=== PATIENT | male | born 1935 | race Caucasian/White ===

== ENCOUNTER 2016-04-23 08:59 | Emergency (ER) ==
[2016-04-23 09:08] VITALS: BP 139/72
--- NOTE | 2016-04-23 09:40 | PROVIDER DOCUMENTATION ---
HPI-General Adult - General Chief Complaint: General Adult Stated Complaint: BLOOD IN URINE Time Seen by Provider: 04/23/16 09:30 Source: patient, family Allergies/Adverse Reactions: Patient Allergies Allergy/AdvReac Type Severity Reaction Status Date / Time morphine Allergy NAUSEA/VOMI Verified 03/20/16 13:26 TING Home Medications: Ipratropium/Albuterol INH [Combivent Respimat Inhaler] 1 puff INH PRN PRN Apixaban [Eliquis] 5 mg PO BID 02/17/16 - History of Present Illness -Gen Adult Nature of Presenting Problems: patient is a 80 y/o M that presents with 2 to 3 days of hematuria. patient has a fall a few days ago, history of multiple falls over the past month. denies fever/chills, n/v/d. has had LLQ pain with the hematuria. Location of Pain/Injury: reports: abdomen (LLQ), back Pain Radiation: reports: no radiation Quality of Pain: reports: aching Severity: reports: moderate Onset/Duration: reports: abrupt, 2 days ago, 3 days ago Timing: reports: still present, constant Context/Activities at Onset: reports: recent trauma history Modifying Factors: worse with: movement, palpation Associated Symptoms: reports: back/neck pain, genitourinary problems. denies: chest pain, diaphoresis, diarrhea, fever/chills, nausea, vomiting Similar Symptoms Previously?: No Recently seen or treated by another doctor?: Yes Review of Systems - Adult - REVIEW OF SYSTEMS - ADULT Constitutional: denies: chills, fever Eyes: reports: no symptoms reported Ears, Nose, Mouth & Throat: reports: no symptoms reported Cardiovascular: denies: chest pain, palpitations, syncope Respiratory: denies: cough, shortness of breath, wheezing Gastrointestinal: reports: abdominal pain. denies: hematemesis, diarrhea, nausea, rectal bleeding, vomiting Genitourinary: reports: hematuria. denies: dysuria, frequency Musculoskeletal: reports: back pain. denies: joint pain, neck pain Integumentary: reports: no symptoms reported Neurological: reports: no symptoms reported Psychiatric: reports: no symptoms reported Endocrine: reports: no symptoms reported Hematologic/Lymphatic: reports: no symptoms reported Allergic/Immunologic: reports: no symptoms reported All Other Systems: Reviewed and Negative Past History - Adult - PAST MEDICAL HISTORY-ADULT Review of Records: reports: Old Records Reviewed, Nursing Assessment Review, Medications Reviewed Cardiovascular: reports: A-Fib, HTN, other (pericarditis) Respiratory: reports: COPD Musculoskeletal: reports: arthritis, orthopedic injury (t5 compression fx) - PRIOR SURGERIES/PROCEDURES Surgical/Procedure History: reports: back/neck, other (cartoid endarctomy) - IMMUNIZATION STATUS Childhood Immunizations: See Nurse Assessment Flu Vaccine: See Nurse Assessment - FAMILY HISTORY Family History: reviewed, not pertinent - SOCIAL HISTORY Smoking: cigarettes, less than 1 pack/day Living Situation: family Physical Exam-General - PHYSICAL EXAM-ADULT Initial Vital Signs Reviewed: Yes - CONSTITUTIONAL General Appearance: alert, no apparent distress - EYES Eyes: PERRL/EOMI, pink conjunctivae - HEAD, EARS, NOSE, MOUTH & THROAT HENMT: normocephalic/atraumatic, moist mucous membranes, normal ENT inspection - NECK Neck: full range of motion, normal inspection. negative: lymphadenopathy - RESPIRATORY Respiratory: lungs clear, normal breath sounds, no respiratory distress, no accessory muscle use, other (left lower rib pain and tenderness with palpation) - CARDIOVASCULAR Cardiovascular: regular rate, rhythm, no edema, no murmur - GASTROINTESTINAL (ABDOMEN) Abdominal Exam: normal bowel sounds, soft, no organomegaly, no pulsatile mass, tenderness (LLQ). negative: hernia, mass - MUSCULOSKELETAL Back Exam: no CVA tenderness, vertebral tenderness (t5). negative: CVA tenderness Extremity: normal range of motion, no pedal edema, no calf tenderness, normal capillary refill, pelvis stable - SKIN Integumentary: normal color, normal turgor, warm/dry - NEUROLOGIC Neurologic: grossly normal, no motor/sensory deficits - PSYCHIATRIC Psych/Mental Status: normal mood/affect, normal thought content, normal thought process, oriented x 3 Progress - PLAN OF CARE/RESULTS Progress/Plan/Lab Results: plan of care-labs, Vital Signs Temp Pulse Resp BP Pulse Ox 04/23/16 09:04 98.0 F 52 L 28 H 139/72 94 L morphine Allergy (Verified 03/20/16 13:26) NAUSEA/VOMITING Diltiazem C.d. [Cardizem Cd] 120 mg PO DAILY #30 capsule 10/07/15 Ipratropium/Albuterol INH [Combivent Respimat Inhaler] 1 puff INH PRN PRN Aspirin 81 mg PO DAILY #100 chewtab 10/21/15 Apixaban [Eliquis] 5 mg PO BID 02/17/16 Oxycodone HCl/Acetaminophen [Percocet 2.5-325 mg Tablet] 1 each PO Q4-6H PRN PRN #20 tablet 03/20/16 I&O 04/22/16 04/23/16 04/24/16 06:59 06:59 06:59 Output Total 30 Balance -30 Laboratory 04/23/16 04/23/16 04/23/16 09:57 09:57 09:40 WBC 5.71 RBC 4.24 L Hgb 12.8 L Hct 38.0 L MCV 89.6 MCH 30.2 MCHC 33.7 RDW Std Deviation 14.5 Plt Count 250 MPV 10.9 H Immature Gran % (Auto) 0.0 Neut % (Auto) 71.6 Lymph % (Auto) 17.0 L Stephenson % (Auto) 9.8 H Eos % (Auto) 1.1 Baso % (Auto) 0.5 Immature Gran # (Auto) 0.00 Neut # (Auto) 4.09 Lymph # (Auto) 0.97 L Stephenson # (Auto) 0.56 Eos # (Auto) 0.06 Baso # (Auto) 0.03 Sodium 137 Potassium 4.0 Chloride 98 Carbon Dioxide 25 Anion Gap 14 BUN 16 Creatinine 0.7 Estimated GFR/1.73 m2 > 60 BUN/Creatinine Ratio 23 Glucose 112 H Calculated Osmolality 276 Calcium 9.4 Total Bilirubin 0.41 AST 11 ALT 6 L Alkaline Phosphatase 124 H Total Protein 7.0 Albumin 3.5 Globulin 3.5 Albumin/Globulin Ratio 1.0 Urine Source CLEAN CATCH Urine Color ORANGE Urine Turbidity HAZY Urine pH 5.5 Ur Specific Mcintosh 1.035 Urine Protein 100 A Ur Glucose (Stick) NEGATIVE Ur Ketones (Stick) 10 A Urine Blood LARGE A Urine Nitrite NEGATIVE Urine Bilirubin SMALL A Urobilinogen Dipstick 3 A Urine Leukocytes MODERATE A Urine WBC (Auto) 10-20 A Urine RBC (Auto) TNTC A U Epithel Cells (Auto) <10 Urine Bacteria (Auto) NEGATIVE Urine Crystals NONE SEEN Small Round Cells NONE SEEN Urine Casts NONE SEEN Urine Yeast-like Cells NONE SEEN Orders Category Date Time Status RIBS UNILAT W/PA CHEST LEFT [RAD] Stat Exams 04/23/16 09:43 Taken CBC WITH ELECTRONIC DIFF [HEME] Stat Lab 04/23/16 09:57 Completed CMP [COMPREHENSIVE METABOLIC PANEL] [CHEM] Stat Lab 04/23/16 09:57 Completed URINALYSIS W/POSS RFLX CULT [URINALYSIS] Stat Lab 04/23/16 09:40 Completed URINE CULTURE [RM] Routine Lab 04/23/16 10:24 Received URINE MANUAL MICROSCOPIC [URINALYSIS] Stat Lab 04/23/16 09:40 Completed pt will be d/c home with rx, f/u with pcp, pt and family understood results/ instructions, pt was clinically stable - XRAY 1 XRAY: Left XRAY Study: Ribs Impression: Abnormal XRAY Interpretation: fx 9th and 10th rib Departure - Departure Time of Disposition Order: 10:53 DIAGNOSIS: Ribs, multiple fractures Qualifiers: Encounter type: initial encounter Fracture type: closed Laterality: left Qualified Code(s): S22.42XA - Multiple fractures of ribs, left side, initial encounter for closed fracture UTI (urinary tract infection) Qualifiers: Urinary tract infection type: acute cystitis Hematuria presence: with hematuria Qualified Code(s): N30.01 - Acute cystitis with hematuria Disposition: HOME 01 Certified Medical Emergency: Emergent Condition: Stable Additional Instructions: push fluids ED Follow Up Instructions: You have been treated by a care provider in the Emergency Department. These instructions are being provided to you so you can have an understanding of how to care for yourself upon discharge. Upon discharge from the Emergency Department, you are responsible for making arrangements for follow-up care by a physician of your choice. Take all prescribed medications as directed. Return to the Emergency Department immediately for any new or worsening symptoms. You may call the Physician Referral phone number at [phone] to obtain a list of Physicians who are taking new patients. Referrals: Heriberto Wakefield [Primary Care Provider] - Call for Appoint. 1-2days Instructions: Rib Fracture, [id number], Urinary Tract Infection, [id number] Attestation - Scribe Verification/Attestation Scribe:: Kyle Garcia Acting as Scribe for:: Beth Da Silva Scribe documention review:: This chart was documented by a scribe and accurately reflects the service the provider performed and the decisions made by the provider. Physician Attestation - Physician Attestation I, the provider, attest to the following statement:: Beth Da Silva Physician documentation Attestation:: This documentation recorded by the scribe accurately reflects the service I personally performed and the decisions made by me.
[2016-04-23 10:01] LABS: MANUAL DIFF NEEDED? NO
[2016-04-23 10:02] LABS: URINE SOURCE CLEAN CATCH
[2016-04-23 10:07] LABS: BASO% 0.5 % (0.0-0.8); EOS# 0.06 X1000 (0.0-0.7); EOS% 1.1 % (0.0-10.0); HEMOGLOBIN 12.8 g/dL (14.0-18.0); LYMPH# 0.97 X1000 (1.2-3.4); MCH 30.2 PG (27-31); MCHC 33.7 g/dL (33-37); MCV 89.6 FL (81-99); MONO# 0.56 X1000 (0.11-0.59); MONO% 9.8 % (1.7-9.3); MPV 10.9 FL (7.4-10.4); NEUT% 71.6 % (42.2-75.2); PLT 250 X1000 (130-400); RBC 4.24 XMIL (4.7-6.1)
[2016-04-23 10:10] LABS: URINE MICRO REVIEW NEEDED? YES
[2016-04-23 10:24] LABS: BILIRUBIN URINE SMALL (NEGATIVE); BLOOD URINE LARGE (NEGATIVE); COLOR ORANGE; GLUCOSE URINE NEGATIVE (NEGATIVE); LEUKOCYTES URINE MODERATE (NEGATIVE); NITRITE URINE NEGATIVE (NEGATIVE); PH URINE 5.5; PROTEIN URINE 100 mg/dL (NEGATIVE); SP GRAVITY URINE 1.035; TURBIDITY URINE HAZY (CLEAR); UR EPITHELIAL CELLS <10 /HPF (<10); URINE BACTERIA NEGATIVE /HPF; URINE CULTURE NEEDED? YES; URINE RBC TNTC /HPF (<10); UROBILINOGEN URINE 3 mg/dL (NORMAL)
[2016-04-23 10:47] LABS: URINE CASTS NONE SEEN; URINE CRYSTALS NONE SEEN; URINE SMALL ROUND CELLS NONE SEEN
[2016-04-23 10:48] LABS: AGAP 14; ALBUMIN 3.5 g/dL (3.5-5.0); ALKALINE PHOSPHATASE 124 U/L (32-122); BUN 16 mg/dL (8-22); CALCIUM 9.4 mg/dL (8.8-10.2); CHLORIDE 98 mmol/L (98-107); COSMO 276; GOT 11 U/L (10-34); GPT 6 U/L (10-44); SODIUM 137 mmol/L (136-145); TCO2 25 mmol/L (25-35); TOTAL BILIRUBIN 0.41 mg/dL (0.20-1.00)
[2016-04-23] MEDS ORDERED: GENTAMICIN IM ONE (10:58)
--- NOTE | 2016-04-23 11:02 | Diag Imaging Result Document ---
PROCEDURE NAME: RIBS UNILAT W/PA CHEST LEFT - 04/23/2016 AP CHEST AND LEFT RIB SERIES, FIVE VIEWS: FINDINGS: There is no evidence of a pneumothorax or pleural fluid collection. There is some fibrosis in the lingula. There is a fracture of the distal tenth rib. There may be a nondisplaced fracture of the ninth rib distally. IMPRESSION: Fractures of the ninth and tenth left ribs.
== END 2016-04-23 11:39 | disposition home or self-care (01) ==
LOC: ED 08:59
DX: S22.42XA Multiple fractures of ribs, left side, initial encounter for closed fracture (principal); N30.01 Acute cystitis with hematuria; R31.9 Hematuria, unspecified; R10.32 Left lower quadrant pain; M54.9 Dorsalgia, unspecified; R07.81 Pleurodynia; R10.814 Left lower quadrant abdominal tenderness; I48.91 Unspecified atrial fibrillation; Z79.899 Other long term (current) drug therapy; I10 Essential (primary) hypertension; J44.9 Chronic obstructive pulmonary disease, unspecified; M19.90 Unspecified osteoarthritis, unspecified site; F17.210 Nicotine dependence, cigarettes, uncomplicated; Z79.01 Long term (current) use of anticoagulants; W19.XXXA Unspecified fall, initial encounter
CPT/HCPCS: 36415; 51798; 71101; 80053; 81001; 85025; 87077; 87088; 96372; J1580

== ENCOUNTER 2016-09-16 18:19 | Inpatient (IN) ==
[2016-09-16] MEDS ORDERED: ASPIRIN PO STA (18:25)
[2016-09-16 18:52] LABS: BASO% 0.1 % (0.0-0.8); HEMATOCRIT 38.2 % (42.0-52.0); HEMOGLOBIN 13.1 g/dL (14.0-18.0); IMM GRAN# 0.04 X1000 (0.0-0.04); IMM GRAN% 0.3 % (0.0-0.5); LYMPH# 0.56 X1000 (1.2-3.4); LYMPH% 4.9 % (20.5-51.1); MANUAL DIFF NEEDED? NO; MCH 30.2 PG (27-31); MCHC 34.3 g/dL (33-37); MONO# 0.14 X1000 (0.11-0.59); MONO% 1.2 % (1.7-9.3); MPV 9.6 FL (7.4-10.4); NEUT% 93.5 % (42.2-75.2); PLT 374 X1000 (130-400); RBC 4.34 XMIL (4.7-6.1)
[2016-09-16 18:56] LABS: PROTIME 10.5 Seconds (9.2-11.7); PTT 28.5 Seconds (22.0-36.0)
[2016-09-16 19:24] LABS: AGAP 16; ALBUMIN 3.4 g/dL (3.5-5.0); ALKALINE PHOSPHATASE 67 U/L (32-122); BUN 16 mg/dL (8-22); CALCIUM 9.2 mg/dL (8.8-10.2); CHLORIDE 96 mmol/L (98-107); CK PROFILE 22 U/L (24-204); COSMO 279; GOT 8 U/L (10-34); GPT 10 U/L (10-44); POTASSIUM 4.5 mmol/L (3.5-5.1); SODIUM 135 mmol/L (136-145); TCO2 23 mmol/L (25-35); TOTAL BILIRUBIN 0.15 mg/dL (0.20-1.00); TOTAL PROTEIN 7.1 g/dL (6.3-8.3)
[2016-09-16] MEDS ORDERED: NORCO-7.5 PO ONE (19:56)
[2016-09-16] MEDS ORDERED: LASIX IV ONE (21:17)
[2016-09-16] MEDS ORDERED: ROCEPHIN 1 GM/NS 1 GM/50 ML IVPB IV ONE (21:50)
--- NOTE | 2016-09-16 23:57 | HISTORY AND PHYSICAL ---
CHIEF COMPLAINT: Chest pain. HISTORY OF PRESENT ILLNESS: This is a pleasant gentleman who came in for atypical chest pain the last 24 hours. He reports having a carotid endarterectomy, I believe per Dr. Taylor, within the last month. I do not have any record of visits for that. His last visit here was in April. This may have been done as an outpatient, I guess, but in any case, the patient came in for chest pain across his entire chest, also radiating to his back. He is already on apixaban, which I believe is for atrial fibrillation, and came in for atypical chest pain, some shortness of breath as well. Workup in the ER was really unremarkable. There was questionable infiltrates in right lower lobe, so he was admitted for pneumonia, COPD, possible CHF. Patient denies fevers, chills, but he does have cough and shortness of breath. PAST MEDICAL HISTORY: 1. Chronic obstructive pulmonary disease. 2. Hypertension. 3. Reported carotid stenosis. PAST SURGICAL HISTORY: 1. He has had back surgery per Dr. Andre. 2. Carotid endarterectomy. FAMILY HISTORY: Reviewed and noncontributory. SOCIAL HISTORY: He smokes about a half to a third a pack a day. He has done that for probably 50 years. No alcohol. No other drugs. He is . ALLERGIES: No known drug allergies. MEDICATIONS: He currently takes ProAir daily, Eliquis 5 b.i.d., aspirin 81 daily, Symbicort daily, Cardizem CD 240 daily, meloxicam 7.5 daily, Bactrim. REVIEW OF SYSTEMS: Otherwise negative times a 10-point review of systems. PHYSICAL EXAMINATION: VITAL SIGNS: Blood pressure 136/107, heart rate of 82, respiratory rate 24, temperature 97.9 degrees, 97% on room air. GENERAL: A thin male, in no acute distress. HEAD: Normocephalic, atraumatic. EYES: Pupils equal, round, reactive to light. Extraocular movements were intact. EARS/NOSE/THROAT: Moist mucous membranes. NECK: Supple. CARDIOVASCULAR: Regular rate and rhythm. No murmurs, gallops, or rubs. PULMONARY: Bilateral breath sounds. Clear to auscultation. It was definitely diminished overall. No wheezing, but very minimal air movement. GASTROINTESTINAL: Soft, nontender, nondistended. Bowel sounds are positive. EXTREMITIES: No clubbing or cyanosis. LYMPHATICS: No peripheral edema. NEUROLOGICAL: Nonfocal, but he cannot raise his arms above midlevel. This is reportedly since his surgery, but he does have good distal strength, just weak proximal strength, good distal lower strength, 4-5 in all 4 extremities. LABORATORY DATA: White count 11.5, hemoglobin and hematocrit 13 and 38, platelets of 374,000. D- dimer 0.57. Chemistries look okay. Blood sugar 236. BNP 568. Chest x-ray showed possibly some early airspace disease, right lower lobe, otherwise, and some increased cephalization of the vessels. PROBLEM LIST: 1. Atypical chest pain. We will rule out with serial cardiac enzymes. Check an echocardiogram. Pursue Cardiology consult and follow. With carotid stenosis, he is certainly at risk for coronary artery disease. 2. Chronic obstructive pulmonary disease with mild exacerbation. We will continue breathing treatments and follow clinically. Will need to rule out deep venous thrombosis, although pulmonary embolism is unlikely in this setting of already being on apixaban, but we will continue to follow. 3. Relative hyperglycemia. We will continue to monitor his blood sugars closely. 4. Cervical radiculopathy. We will pursue C-spine films. He may end up needing MRI to better evaluate his weakness, and follow closely. DISPOSITION: Pending his workup. cc: MD Heriberto Rocha MD
[2016-09-17] MEDS ORDERED: VENTOLIN HFA INH PRN (00:07)
--- NOTE | 2016-09-17 07:08 | Diag Imaging Result Doc PS360 ---
EXAM: ANGIOGRAM/PULMONARY ARTERIES HISTORY: chest pain TECHNIQUE: Dose reduction protocol COMPARISON: 03/22/2013 FINDINGS: There is a hypodense nodule in the right lobe of the thyroid. This measures approximately 1.7 cm and has slightly increased in size since the prior exam. Normal opacification of the pulmonary arteries and their major branches. No thoracic aortic aneurysm or dissection. The heart is not enlarged. No pleural effusions. No enlarged mediastinal lymph nodes. There are emphysematous changes. Small dense infiltrate posteriorly in the right upper lobe. There is a 4 mm nodule in the left lung base. It is difficult to tell if this was present on the prior exam. Cement is found within two lower vertebra. There is complete collapse of a mid thoracic vertebra. These findings were not present on the prior exam. IMPRESSION: 1.No pulmonary emboli 2.Right upper lobe pneumonia 3.Emphysema 4.Nonspecific right thyroid nodule 5.Tiny left lower lobe nodule 6.Compression fractures 7.A preliminary report was given at 12:16 AM Electronically signed by Surya Edmond 09/17/2016 5:31 AM
--- NOTE | 2016-09-17 07:10 | EKG Report ---
Test Performed on : 09/16/2016 6:27:38 PM Test Reason : Chest Pain Blood Pressure : / mmHG Vent. Rate : 087 BPM Atrial Rate : 375 BPM P-R Int : 000 ms QRS Dur : 084 ms QT Int : 362 ms P-R-T Axes : 000 074 071 degrees QTc Int : 435 ms Atrial fibrillation. Abnormal ECG When compared with ECG of 20-MAR-2016 12:02, No significant change was found Unconfirmed Result
--- NOTE | 2016-09-17 07:25 | Diag Imaging Result Doc PS360 ---
CHEST-2 VIEWS - 09/16/2016 INDICATION: CP SOB TECHNIQUE: COMPARISON: 04/23/2016 FINDINGS: There is alveolar infiltrate in the right upper lobe. This is new from prior. Stable COPD changes. Heart size and pulmonary vascularity is normal. No pneumothorax or pleural effusion. There is a new vertebroplasty at the lower thoracic spine and upper lumbar spine. IMPRESSION: Right upper lobe infiltrate compatible with pneumonia. Recommend treatment and follow-up until clear. COPD. Electronically signed by Kendall Edwards 09/17/2016 7:22 AM
--- NOTE | 2016-09-17 07:41 | Diag Imaging Result Doc PS360 ---
CERVICAL SPINE 2-VIEWS - 09/16/2016 INDICATION: arm weakness TECHNIQUE: COMPARISON: What is visible from the thoracic spine x-ray of 03/20/2016 FINDINGS: Alignment is anatomic. Vertebral body heights are preserved. There is severe multilevel degenerative disc disease with narrowing, sclerosis, and osteophytes. There is also moderate facet degeneration. There is extensive vascular calcification of the carotid bulbs. There are surgical clips along the left side of the neck. IMPRESSION: Extensive chronic changes. No definite acute disease. Electronically signed by Kendall Edwards 09/17/2016 7:38 AM
[2016-09-17 08:01] LABS: HEMOGLOBIN 13.2 g/dL (14.0-18.0); MCH 30.6 PG (27-31); MCHC 33.8 g/dL (33-37); MCV 90.5 FL (81-99); RBC 4.31 XMIL (4.7-6.1)
[2016-09-17 08:16] LABS: AGAP 15; BUN 19 mg/dL (8-22); CALCIUM 9.2 mg/dL (8.8-10.2); CHLORIDE 94 mmol/L (98-107); COSMO 273; MAGNESIUM 2.2 mg/dL (1.5-2.7); SODIUM 135 mmol/L (136-145); TCO2 26 mmol/L (25-35)
[2016-09-17] MEDS: LEVAQUIN 500 MG/D5W 500 MG/100 ML IVPB IV SCH (10:15)
[2016-09-17] MEDS: MOBIC PO SCH ×2 (10:15→20:12)
[2016-09-17] MEDS: ASPIRIN PO SCH (10:15)
[2016-09-17] MEDS: ELIQUIS PO SCH ×2 (10:15→20:13)
[2016-09-17] MEDS: CARDIZEM CD PO SCH (10:15)
[2016-09-17] MEDS: DUONEB (A & A) INH SCH ×4 (10:28→22:53)
[2016-09-17] MEDS: SYMBICORT 160/4.5 MICROGM INHALER INH SCH ×2 (10:28→22:52)
[2016-09-17] MEDS ORDERED: TYLENOL PO PRN (10:38)
--- NOTE | 2016-09-17 11:16 | CONSULTATION ---
DATE OF CONSULTATION: 09/17/2016 DIAGNOSES: 1. Pneumonia. 2. Chest pain. HISTORY OF PRESENT ILLNESS: This is an 81-year-old, gentleman who comes in complaints with of chest pain. He also said he had been feeling weak and some shortness of breath. He did not notice a cough. However, today, he noticed a cough. As far as chest pains are concerned, his upper chest, no radiation to the back or down the arms. There are no palpitations. There is no dizziness or syncope. He had a CT scan done and was diagnosed to have pneumonia in the right upper lobe with central bronchitis and COPD. He has atrial fibrillation and hypertension, COPD as well. PAST MEDICAL HISTORY: 1. COPD. 2. Hypertension. 3. Carotid disease, left carotid endarterectomy with patch angioplasty 10/20/2015. 4. Atrial fibrillation. 5. Anticoagulation therapy. 6. Chronic COPD. 7. Back surgery. MEDICATIONS: Include Eliquis 5 b.i.d., aspirin, Symbicort, Cardizem, meloxicam. He has been given antibiotics, ceftriaxone as well as was Levaquin in the hospital. REVIEW OF SYSTEMS: Next 14 point review of systems. GI System: There is no history of nausea, vomiting, or diarrhea. There is no history of hematemesis or melena. Central Nervous System: No focal weakness to suggest a CVA or TIA. Genitourinary System: There is no dysuria or hematuria. ALLERGIES: He is not known to be allergic to any medications. SOCIAL HISTORY: Smokes about a half to a third a pack of cigarettes. There is no history of alcohol abuse. PHYSICAL EXAMINATION: Vital Signs: Blood pressure was 130/85. Cardiovascular System: Normal jugular venous pressure. There no thyromegaly. There was no carotid bruit. First and second heart sounds heard. There is no S3 gallop. Respiratory System: Scattered wheeze. Abdomen: Soft, nontender. There was no guarding or rigidity. Bowel sounds were heard. Central Nervous System: Alert, oriented, was moving all 4 extremities. Extremities: Examination of extremities revealed no pedal edema. HEENT: Atraumatic, normocephalic. Pupils were equal and reacting to light. LABORATORY EXAMINATION: Revealed sodium 135, potassium 4, BUN 19, creatinine 1. CBC: WBC 11.5, hemoglobin 13, hematocrit 38, platelet count of 374,000. ASSESSMENT AND PLAN: 1. Mr. Don Us is an 81-year-old, gentleman who is admitted with pneumonia. He also has chronic obstructive pulmonary disease, hypertension, and peripheral vascular disease. From a cardiac standpoint, he has been ruled out for myocardial infarction by cardiac enzymes. 2. For pneumonia, continue with medications. Recent echocardiogram did not reveal any significant valvular disease. 3. He is on anticoagulation therapy for stroke prophylaxis. Would recommend continuing that. 4. Continue blood pressure medications. 5. Pneumonia. He is on Levaquin. Recommend continuing medications as planned. Thank you for the consult. We will follow. cc: Gorge Ramires MD
--- NOTE | 2016-09-17 12:36 | PROGRESS NOTE ---
DATE: 09/17/2016 SUBJECTIVE: Today Mr. Us refers to be doing a little better. Still continues to have significant pain in both shoulders and the chest. OBJECTIVE: Vital signs: Blood pressure is 134/85, pulse 84, respirations 18, temperature 98.5 degrees. General: Mr. Us is an 81-year-old male. He is in bed. He did not seem to be in an remarkable distress. HEENT: Mucosa is pink and moist. Anicteric. Acyanotic. Neck: Supple. Chest: Air entry is bilaterally reduced. There is a prolonged expiration phase of respiration. Patient has a barrel chest. Cardiovascular: Regular rate and rhythm. Abdomen: Soft, nontender. Extremities: No pedal edema. ADMINISTRATIVE TECHNICIAN: Patient is alert and oriented. There is some limitations to the mobilization of the left shoulder and patient has generalized hand features consistent with severe osteoarthritis. IMAGING STUDIES: A cervical spine x-ray which was done this morning shows extensive chronic changes, no acute disease, consistent with severe osteoarthritis. A CTA which was done yesterday shows no pulmonary emboli. There is a right upper lobe pneumonia. There is emphysema. There is a compression fracture. LABORATORY DATA: WBC is now down to 9.99, hemoglobin is 13.3. Chemistry is reviewed. Sodium is 135. Troponins have been negative. ASSESSMENT: 1. Chest pain which I think is probably secondary to the underlying pneumonia and costochondritis. Patient's troponins have been negative. EKG does not show any acute T-wave changes or ST-segment abnormalities. The patient has been evaluated by Cardiology as well. 2. Right upper lobe pneumonia. We started the patient on Levaquin. 3. Chronic obstructive pulmonary disease. Seems to be advanced stage. The patient has a barrel shape and continues to smoke. However, he has been counseled. We are going to continue with the nebulizations, put him on steroids as well, and get pulmonary medicine to follow him up on outpatient basis. According to the patient he has not been told officially to have COPD but clinically and radiologic evidence shows that he has almost end-stage. 4. 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 We will do urine osmolarity as well as sodium to better categorize this. PLAN: So in general I think Mr. Us is relatively stable. The chest pain is improving. I think it is a combination of musculoskeletal as well as the underlying pneumonia. The patient has been evaluated by cardiology. At least acute [place] has been ruled out and I do not think there is any plan to do any further cardiac workup. Patient has been started on Levaquin. I anticipate that by tomorrow we will be able to discharge the patient. We will also put him on Young for pain control and ask physical therapy also to work with the patient. cc: Betito Paige MD MTDD
[2016-09-17] MEDS: PREDNISONE PO SCH (12:59)
--- NOTE | 2016-09-17 15:42 | ECHO REPORT ---
ORDER DATE: 09/17/2016 ECHOCARDIOGRAM: MEASUREMENTS: Left ventricular end-diastolic diameter 3.2, end systolic diameter 2.4, posterior wall thickness 1.2, septal thickness 0.9. SUMMARY: 1. Technically difficult study due to limited acoustic window quality. 2. Trileaflet aortic valve is sclerotic but appears to open adequately on 2-dimensional images. Peak gradient across aortic valve is 30 mmHg with a mean gradient of 20 mmHg. Calculated aortic valve area is greater than 2 cm2 suggesting minimal aortic stenosis. There is mild aortic regurgitation. Mitral, tricuspid and pulmonic valves are without structural abnormality with mild mitral regurgitation and trace tricuspid regurgitation. Estimated systolic PA pressure by Doppler is approximately 30 mmHg. Aortic root is normal in size. 3. Normal left ventricular dimensions suggested on 2-D images. Estimated left ventricular ejection fraction appears to be at least 60%. No regional wall motion abnormalities are evident. Doppler suggests normal left ventricular diastolic function. Left atrium, right atrium, and right ventricle are normal in size with normal right ventricular systolic function. 4. No pericardial effusion. 5. Appearance of inferior vena cava suggests normal central venous pressure. CONCLUSIONS: 1. Technically difficult study. 2. Aortic valve is sclerotic with minimal aortic stenosis and mild aortic regurgitation. 3. Mild mitral regurgitation. 4. Estimated left ventricular ejection fraction at least 60%. cc: MD Jamarcus Weathers MD
[2016-09-18] MEDS: DUONEB (A & A) INH SCH ×2 (03:58→10:54)
[2016-09-18 06:33] LABS: MANUAL DIFF NEEDED? NO
[2016-09-18 06:40] LABS: BASO% 0.2 % (0.0-0.8); EOS# 0.25 X1000 (0.0-0.7); EOS% 2.5 % (0.0-10.0); HEMATOCRIT 37.4 % (42.0-52.0); HEMOGLOBIN 12.5 g/dL (14.0-18.0); IMM GRAN# 0.06 X1000 (0.0-0.04); IMM GRAN% 0.6 % (0.0-0.5); LYMPH# 1.87 X1000 (1.2-3.4); LYMPH% 18.8 % (20.5-51.1); MCH 29.7 PG (27-31); MCHC 33.4 g/dL (33-37); MCV 88.8 FL (81-99); MONO# 0.89 X1000 (0.11-0.59); MONO% 8.9 % (1.7-9.3); MPV 9.6 FL (7.4-10.4); PLT 313 X1000 (130-400); RBC 4.21 XMIL (4.7-6.1)
--- NOTE | 2016-09-18 06:53 | EKG Report ---
Test Performed on : 09/18/2016 06:16:37 AM Test Reason : afib Blood Pressure : / mmHG Vent. Rate : 076 BPM Atrial Rate : 375 BPM P-R Int : 000 ms QRS Dur : 084 ms QT Int : 394 ms P-R-T Axes : 000 065 077 degrees QTc Int : 443 ms Atrial fibrillation. Abnormal ECG When compared with ECG of 16-SEP-2016 18:27, No significant change was found Confirmed by Isaiah LOPEZ, Jeovany Alvarenga ([id number]) on 09/18/2016 6:22:59 PM
[2016-09-18] MEDS ORDERED: PROTONIX PO SCH (07:00)
[2016-09-18 07:17] LABS: AGAP 10; BUN 20 mg/dL (8-22); CHLORIDE 98 mmol/L (98-107); COSMO 274; POTASSIUM 3.9 mmol/L (3.5-5.1); SODIUM 136 mmol/L (136-145); TCO2 28 mmol/L (25-35)
[2016-09-18 07:40] VITALS: BP 120/77
[2016-09-18] MEDS: LEVAQUIN 500 MG/D5W 500 MG/100 ML IVPB IV SCH (09:46)
[2016-09-18] MEDS: ELIQUIS PO SCH (09:46)
[2016-09-18] MEDS: CARDIZEM CD PO SCH (09:46)
[2016-09-18] MEDS: PREDNISONE PO SCH (09:46)
[2016-09-18] MEDS: ASPIRIN PO SCH (09:46)
[2016-09-18] MEDS: MOBIC PO SCH (09:46)
[2016-09-18] MEDS: SYMBICORT 160/4.5 MICROGM INHALER INH SCH (10:54)
--- NOTE | 2016-09-18 20:58 | DISCHARGE SUMMARY ---
ADMISSION DATE: 09/16/2016 DISCHARGE DATE: 09/18/2016 PERTINENT PROCEDURES: 1. Pulmonary arteriogram showed no pulmonary emboli, right upper lobe pneumonia, emphysema, nonspecific right thyroid nodule, tiny left lower lobe nodule, compression fractures. 2. Cervical spine x-ray showed extensive chronic changes. No acute disease. 3. Echocardiogram showed an EF of 60%. DISCHARGE DIAGNOSES: 1. Chest pain secondary to underlying pneumonia and costochondritis. The patient's troponins have been negative. Electrocardiogram does not show any acute T-wave or ST-segment abnormalities. Evaluated by Cardiology as well. 2. Right upper lobe pneumonia. Patient was started on Levaquin, improved. 3. Chronic obstructive pulmonary disease advanced stage. 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 He has been counseled daily about smoking cessation as well as the means to quit. Continue bronchodilators as well as p.o. antibiotics and a prednisone taper. 4. 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 HOSPITAL COURSE: Briefly, Mr. Us is an 81-year-old male who carries a past medical history of COPD, hypertension, reported carotid stenosis, who reported to the ED for atypical chest pain for 24 hours. He reported having a carotid endarterectomy by Dr. Taylor within the last month. However there was no record found for that visit. His last visit here was in April. He stated his chest pain was across his entire chest and it radiated to his back. He is on apixaban for atrial fibrillation. Workup in the ED was unremarkable. There were questionable infiltrates in the right lower lobe. The patient was admitted for right lower lobe pneumonia as well as rule out chest pain with a Cardiology consultation. The patient was evaluated by Cardiology who believed his chest pain was secondary to his underlying pneumonia as well as costochondritis. EKG did not show any acute T-wave changes or ST-segment abnormalities. He was started on IV Levaquin as well as bronchodilators and steroids. It was discussed with him daily about smoking cessation as well as the means to quit. He will continue on nebulizers as well as steroids and p.o. antibiotics at discharge. Mr. Us is clinically stable for discharge. His chest pain has improved. Acute WI has been ruled out. The patient is being discharged home with [place] for pain control. VITAL SIGNS AT TIME OF DISCHARGE: Temperature is 97.9 degrees, heart rate 78, respirations 16, blood pressure 120/77, O2 is 96% on room air. DISCHARGE DIET: Healthy heart. DISCHARGE MEDICATIONS: 1. ProAir. 2. Eliquis. 3. Aspirin. 4. Symbicort. 5. Cardizem. 6. Levaquin. 7. Meloxicam. 8. Protonix. 9. Prednisone. FOLLOWUP: 1. Patient is being discharged home with self-care to follow up with his primary care physician, Dr. Heriberto Wakefield, in 7-10 days. 2. Patient will need to continue to take his p.o. antibiotic, continue his bronchodilators as well as his prednisone taper, as well as smoking cessation. 3. The patient can return to the ED for any worsening of symptoms. DISCHARGE TIME: 30 minutes. Dictated by CARTER Jackson for Betito Paige MD cc: MD Heriberto Costello MD
[2016-09-19] MEDS ORDERED: LEVAQUIN PO SCH (09:00)
--- NOTE | 2016-09-27 17:30 | PROVIDER DOCUMENTATION ---
This chart was entered by Fidel Nazario Scribe, acting as scribe for Ten Denny MD. HPI-Chest Pain - General Chief Complaint: Chest Pain Stated Complaint: "HURTING ALL OVER, CHEST AND BACK" Time Seen by Provider: 09/16/16 18:32 Source: patient Allergies/Adverse Reactions: Patient Allergies Allergy/AdvReac Type Severity Reaction Status Date / Time morphine Allergy NAUSEA/VOMI Verified 03/20/16 13:26 TING Home Medications: Home Medication List Medication Instructions Recorded Confirmed Last Taken Type Diltiazem C.d. [Cardizem Cd] 120 mg PO DAILY #30 capsule 10/07/15 09/16/1603/20 Rx Aspirin 81 mg PO DAILY #100 chewtab 10/21/15 09/16/16 03/20/16 Rx Apixaban [Eliquis] 5 mg PO BID 02/17/16 09/16/16 03/20/16 History Albuterol Sulfate [Proair Hfa] 1 puff INH DIRECTED 09/16/16 09/16/16 Unknown History Budesonide/Formoterol Fumarate 1 puff INH DIRECTED 09/16/16 09/16/16 Unknown History [Symbicort 160-4.5 Mcg Inhaler] Meloxicam 7.5 mg PO BID 09/16/16 09/16/16 Unknown History Levofloxacin [Levaquin] 500 mg PO DAILY #7 tablet 09/18/16 Unknown Rx Pantoprazole [Protonix] 40 mg PO DAILY@0700 #60 tablet 09/18/16 Unknown Rx Prednisone 20 mg PO DAILY #5 tablet 09/18/16 Unknown Rx - History of Present Illness-CP Nature of Presenting Problem: Pt is a 81 yowm who presents to ER with CC of chest pain that has become progressively worse in the past 3 days. Pt denies any shortness of breath, but appears barrel-chested and was put on O2. Pt also complains of back pain and states that his chest/back pain is worsened on deep inspiration. Location: reports: other (generalized chest) Chest Pain Radiation: reports: no radiation Quality of Pain: reports: aching, sharp Severity in ED: moderate Onset/Duration: 3 days ago Timing: getting worse Associated Symptoms: reports: back pain, swelling/lump in chest. denies: abdominal pain, diaphoresis, dizziness, edema, fatigue, fever/chills, headache, heartburn, nausea, rash, shortness of breath, syncope, vomiting, weakness Aspirin Treatment Today: 81 mg x 1, provided at home Similar Symptoms Previously?: No Recently Seen Here or By Another Healthcare Provider: No Review of Systems - Adult - REVIEW OF SYSTEMS - ADULT Constitutional: denies: chills, fever, fatique, night sweats, weight gain, weight loss Eyes: reports: no symptoms reported Ears, Nose, Mouth & Throat: reports: no symptoms reported Cardiovascular: reports: chest pain. denies: edema, heart murmur, irregular heart rate, orthopnea, palpitations, poor circulation, PND, syncope Respiratory: reports: dyspnea on exertion. denies: chronic cough, cough, excessive sputum production, hemoptysis, pleurisy, shortness of breath, wheezing Gastrointestinal: reports: no symptoms reported Genitourinary: reports: no symptoms reported Musculoskeletal: reports: back pain. denies: bone pain, frequent leg cramps, joint pain, joint swelling, muscle aches, muscle weakness, neck pain Integumentary: reports: no symptoms reported Neurological: reports: no symptoms reported Psychiatric: reports: no symptoms reported Endocrine: reports: no symptoms reported Hematologic/Lymphatic: reports: no symptoms reported Allergic/Immunologic: reports: no symptoms reported All Other Systems: Reviewed and Negative Past History - Adult - PAST MEDICAL HISTORY-ADULT Review of Records: reports: Nursing Assessment Review, Medications Reviewed Cardiovascular: reports: A-Fib, HTN, other (pericarditis) Respiratory: reports: COPD Musculoskeletal: reports: arthritis, orthopedic injury (t5 compression fx) - PRIOR SURGERIES/PROCEDURES Surgical/Procedure History: reports: back/neck, other (cartoid endarctomy) - IMMUNIZATION STATUS Childhood Immunizations: See Nurse Assessment Flu Vaccine: See Nurse Assessment - FAMILY HISTORY Family History: reviewed, not pertinent Physical Exam-General - PHYSICAL EXAM-ADULT Initial Vital Signs Reviewed: Yes - CONSTITUTIONAL General Appearance: appears well, alert, mild distress, thin - EYES Eyes: PERRL/EOMI, pink conjunctivae - HEAD, EARS, NOSE, MOUTH & THROAT HENMT: normocephalic/atraumatic, moist mucous membranes, normal ENT inspection, TMs normal, pharynx normal. negative: pharyngeal erythema, tonsillar exudate - NECK Neck: non-tender, full range of motion, supple, normal inspection. negative: C- spine tenderness, limited range of motion, lymphadenopathy - RESPIRATORY Respiratory: chest non-tender, no pleuratic chest pain, no respiratory distress , no accessory muscle use, rales (basilar). negative: normal breath sounds ( coarse breath sounds bilaterally), respiratory distress - CARDIOVASCULAR Cardiovascular: normal peripheral pulses, regular rate, rhythm. negative: bradycardia, tachycardia, irregularly irregular - GASTROINTESTINAL (ABDOMEN) Abdominal Exam: normal bowel sounds, non tender, soft, no organomegaly, no pulsatile mass. negative: guarding, rebound, tenderness - LYMPHATIC Lymphatic: no adenopathy - MUSCULOSKELETAL Back Exam: normal inspection, no CVA tenderness, no vertebral tenderness. negative: CVA tenderness, vertebral tenderness Extremity: normal range of motion, non-tender, normal gait, normal inspection, no pedal edema, no calf tenderness, normal capillary refill, pelvis stable. negative: deformity, erythema, inflammation, swelling, tenderness - SKIN Integumentary: normal color, normal turgor, warm/dry. negative: abrasion(s), diaphoresis, ecchymosis, erythema, laceration(s), swelling, tenderness, warm - NEUROLOGIC Neurologic: imcu nurse II-XII nml as tested, grossly normal, no motor/sensory deficits . negative: facial droop, focal weakness, motor weakness, sensory deficit - PSYCHIATRIC Psych/Mental Status: normal mood/affect, normal thought content, normal thought process, oriented x 3 Progress - PLAN OF CARE/RESULTS Progress/Plan/Lab Results: Orders Category Date Time Status Admit - [facility] - [facility] Routine AdmDCTranf 09/16/16 21:49 Ordered Cardiac Monitoring DIRECTED Care 09/16/16 18:25 Completed Nursing- MD Consult Request Care 09/17/16 00:07 Active Oxygen Therapy- ED Nursing DIRECTED Care 09/16/16 18:25 Completed Saline Loc NOW Care 09/16/16 18:25 Completed MD [Physician/Provider Consults] Routine Cons 09/17/16 06:00 Ordered ANGIOGRAM/PULMONARY ARTERIES [CT] Urgent Exams 09/16/16 23:10 Completed CERVICAL SPINE 2-VIEWS [RAD] Stat Exams 09/16/16 23:14 Completed CHEST-2 VIEWS [RAD] Stat Exams 09/16/16 18:25 Completed BASIC METABOLIC PANEL [CHEM] Routine Lab 09/17/16 04:00 Completed BLOOD CULTURE [BLDCUL] Stat Lab 09/16/16 23:10 Completed CBC WITH ELECTRONIC DIFF [HEME] Stat Lab 09/16/16 18:34 Completed CBC WITH NO DIFF [HEME] Routine Lab 09/17/16 04:00 Completed CK PROFILE [SP CHEM] Q4H Lab 09/17/16 01:00 Completed CK PROFILE [SP CHEM] Q4H Lab 09/17/16 04:00 Completed CK PROFILE [SP CHEM] Stat Lab 09/16/16 18:34 Completed COMPREHENSIVE METABOLIC PANEL [CHEM] Stat Lab 09/16/16 18:34 Completed D-DIMER [CHEM] Stat Lab 09/16/16 18:34 Completed MAGNESIUM [CHEM] Routine Lab 09/17/16 04:00 Completed MAGNESIUM [CHEM] Stat Lab 09/16/16 18:34 Completed PRO B-NATRIURETIC PEPTIDE Stat Lab 09/16/16 18:34 Completed PROTIME WITH INR [COAG] Stat Lab 09/16/16 18:34 Completed PTT [COAG] Stat Lab 09/16/16 18:34 Completed TROPONIN T Q4H Lab 09/17/16 01:00 Completed TROPONIN T Q4H Lab 09/17/16 04:00 Completed TROPONIN T Stat Lab 09/16/16 18:34 Completed Albuterol 2.5MG/Ipratrop 0.5MG [Duoneb (A & A)] Med 09/17/16 04:00 Discontinued 3 ml INH RTQ6H Albuterol Sulfate Inhaler [Ventolin Hfa] Med 09/17/16 00:07 Discontinued 2 puff INH Q2H PRN PRN Apixaban [Eliquis] Med 09/17/16 09:00 Discontinued 5 mg PO BID Aspirin Med 09/16/16 18:25 Discontinued 325 mg PO STAT STA Aspirin Med 09/17/16 09:00 Discontinued 81 mg PO DAILY Budesonide/Formoterol Inhaler [Symbicort 160/4.5 Med 09/17/16 07:30 Discontinued Microgm Inhaler] 1 puff INH RTBID CefTRIAXONE 1 GM/NS [Rocephin 1 gm/Ns] Med 09/16/16 21:50 Discontinued 1 gm in 50 ml IV NOW Diltiazem C.d. [Cardizem Cd] Med 09/17/16 09:00 Discontinued 120 mg PO DAILY Furosemide [Lasix] Med 09/16/16 21:17 Discontinued 80 mg IV NOW ONE Hydrocodone/APAP 7.5 mg/325 mg [[place]-7.5] Med 09/16/16 19:56 Discontinued 1 each PO NOW ONE Meloxicam [Mobic] Med 09/17/16 09:00 Discontinued 7.5 mg PO BID Aerosol Treatments Routine Oth 09/17/16 00:07 Completed Aerosol Treatments Stat Oth 09/17/16 00:07 Completed EKG [EKG] Stat Ther 09/16/16 18:25 Draft Echo Spec/Color Dop W/O Contra Routine Ther 09/17/16 06:00 Completed Transfer/Admit Order [TRANSFER] Routine Transfer 09/16/16 21:50 Completed Result Diagrams: 09/18/16 06:10 09/18/16 06:10 - EKG 1 Time of EKG reading by physician:: 18:27 EKG Read and Signed by:: Ten Denny EKG Interpretation (*Must complete 3 of following elements*): Abnormal Rate: 87 Rhythm: A-fib - XRAY 1 XRAY: Bilateral XRAY Study: Chest Impression: See EMR Report (Right upper lobe infiltrate. Old T5-T6 compression fx. Recommend follow up with Orthopedics - Dr. Denny) XRAY Interpretation: See report - CONSULTS/PCP/HOSPITALIST Notification #1 *Consult/PCP/Hospitalist*: Dr. Yan (Hospitalist) Time Discussed: 21:18 Consult Disposition: Admit Departure - Departure Date of Disposition Decision: 09/16/16 Time of Disposition Decision: 19:00 DIAGNOSIS: Chest pain Disposition: ADMITTED INPATIENT 09 Certified Medical Emergency: Emergent Condition: Stable - Critical Care Note This patient required my direct & personal management of CC.: No Attestation - Physician/ SUSANA Attestation The physician spent face to face time with patient:: Yes Advanced Practice Provider documentation review:: The physician spent face to face time with this patient and agrees with all MLP documentation, treatment, and medical decision making by the MLP. See provider notes for further information. This chart was documented by the indicated scribe, (Fidel Nazario Scribe) and accurately reflects the services I performed and decisions made by Denisha baltazar Christophe I, MD, as attested by the provider's signature.
== END 2016-09-18 12:41 | disposition home or self-care (01) ==
LOC: ED 18:19 → SUATTDRO 23:48 → 3N 23:48
PROVIDERS: ATTEND Internal Medicine